=== PATIENT | female | born 1955 | race Caucasian/White ===

== ENCOUNTER → 2020-10-16 | Outpatient (CLI) | payer BC ==
[~2020-10-16] MED LIST: ANTIVERT 25MG T25 MG PO; COZAAR25 MG PO; CRESTOR10 MG PO; GLUCOPHAGE1000 MG PO; GLUCOTROL XL2.5 MG PO; HYDROCHLOROTHIA25 MG PO; LEVAQUIN750 MG PO; LEXAPRO5 MG PO; LIPITOR TAB 2020 MG PO; MELOXICAM7.5 MG PO; METOPROLOL TART50 MG PO; TOPROL XL 25 MG25 MG PO; VITAMIN B-1000 MCG/M IM; VITAMIN D250000 UNIT PO
== END ==
LOC: HEART 5 04-15 13:30 → ECHO 10:40 → HEART 5 10-30 09:30
DX: I11.9 Hypertensive heart disease without heart failure (principal); R53.83 Other fatigue; R00.2 Palpitations; R06.02 Shortness of breath; R07.9 Chest pain, unspecified
CPT/HCPCS: ECHO; 93306